=== PATIENT | female | born 1950 | race Native Hawaiian/Other Pacific Islander ===

== ENCOUNTER 2021-06-17 11:21 | Outpatient (CLI) | payer OTHER ==
[2021-06-17 11:42] LABS: PLATELET COUNT 210 K/uL (152-353)
[2021-06-17 11:58] LABS: POTASSIUM 4.1 mmol/L (3.6-5.2)
== END 2021-06-17 18:56 | disposition home or self-care (01) ==
LOC: LABW 11:21
PROVIDERS: ATTEND Internal Medicine Cardiovascular Disease
DX: Z79.899 Other long term (current) drug therapy (principal)
CPT/HCPCS: 36415; 80053; 80061; 85027

== ENCOUNTER 2021-06-18 08:56 | Outpatient (CLI) | payer OTHER, MEDICARE | END 2021-06-18 18:51 | disposition home or self-care (01) | LOC: US 08:56 | PROVIDERS: ATTEND Internal Medicine | DX: N18.31 Chronic kidney disease, stage 3a (principal) ==